=== PATIENT | male | born 1940 | race Caucasian/White ===

== ENCOUNTER 2016-12-20 07:28 | Observation (INO) | payer MEDICARE, BC ==
[~2016-12-20 07:28] MED LIST: ALPRAZOLAM0.5 MG; ANTIVERT25 M1 PO; ASPIRIN BUFFER325 M2 PO; ASPIRIN EC81 MG PO; ASPIRIN325 M3 PO; CELEBREX200 MG PO; CIPRO250 MG PO; GABAPENTIN600 M1 PO; IMDUR30 MG PO; LAXATIVE25 M1 PO; LIPITOR40 M1 PO; LIPITOR80 M1 PO; LOVENOX30 MG/0.3 SQ; LOVENOX40 MG/0.4 SQ; NEURONTIN; NEURONTIN600 M1 PO; NEURONTIN600 MG PO; NITROSTAT0.4 MG/TAB SL; NORVASC2.5 MG PO; NORVASC5 M2 PO; OMEPRAZOLE40 M2 PO; OXYCONTIN10 M1 PO; PLAVIX75 M1 PO; PROMETHAZINE V118 M2 PO; RANEXA500 M1 PO; SIMVASTATIN10 MG PO; SYNTHROID; SYNTHROID175 MC1 PO; TOPROL XL25 M1 PO; TOPROL XL25 MG PO; TRAMADOL HCL50 MG PO; TYLENOL325 M2 PO; ULTRAM50 MG PO; VICODIN ES 7.51 EACH PO; XARELTO20 M1 PO; ZOFRAN4 M2 PO
[2016-12-20 08:19] LABS: BASO % 0.9 % (0-2); BASO ABSOLUTE COUNT 0.1 tho/cmm (0.0-0.2); EOSINOPHIL ABSOLUTE COUNT 0.2 tho/cmm (0.0-0.7); HCT-HEMATOCRIT 38.8 % (36.0-53.5); HGB-HEMOGLOBIN 12.6 gm/dl (13.5-17.0); LYMPH % 29.7 % (20-45); LYMPH ABSOLUTE COUNT 1.7 tho/cmm (0.8-4.5); MCH (MEAN CORPUSCULAR HGB) 28.5 pg (28.0-32.0); MCHC MEAN CORPUSCULAR HGB CONC 32.5 % (32.0-36.0); MCV (MEAN CELL VOLUME) 87.8 fl (82.0-96.0); MEAN PLATELET VOLUME 9.6 cmc (9.4-12.4); MONOCYTE ABSOLUTE COUNT 0.5 tho/cmm (0.0-1.2); NEUTROPHIL ABSOLUTE COUNT 3.3 tho/cmm (1.6-8.0); NEUTROPHIL-AUTOMATED 3.3 tho/cmm (1.6-8.0); NEUTROPHILS % 58.4 % (40-80); PLATELET COUNT 216 tho/cmm (150-450); RED BLOOD COUNT 4.42 mil/cmm (4.40-5.70); RED CELL DISTRIBUTION WIDTH 13.9 % (12.4-16.4); WHITE BLOOD COUNT 5.7 tho/cmm (4.0-10.0)
[2016-12-20 08:25] LABS: INR 1.1 INR (0.9-1.1); PROTHROMBIN TIME 12.3 SECONDS (9.0-13.6)
[2016-12-20 08:32] LABS: ALB/GLOB RATIO 1.1 (0.8-2.0); ALBUMIN 3.7 g/dl (3.5-5.0); ALKALINE PHOSPHATASE 109 U/L (33-138); ALT/SGPT 24 U/L (12-78); ANION GAP 11 mmol/L (0-20); AST/SGOT 25 U/L (10-40); BILIRUBIN,TOTAL 0.6 mg/dl (0.0-1.5); BLOOD UREA NITROGEN 12 mg/dl (6-24); CALCIUM 8.8 mg/dl (8.5-10.5); CARBON DIOXIDE-VENOUS 27 mmol/L (22-32); CHLORIDE 107 mmol/l (96-110); CREATININE 0.86 mg/dl (0.60-1.30); GLUCOSE 102 mg/dL (70-110); POTASSIUM 3.7 mmol/L (3.7-5.1); SODIUM 141 mmol/L (135-145); eGFR VALUE FOR BLACK >90 mL/Min
[2016-12-20 08:36] LABS: C-REACTIVE PROTEIN <0.3 mg/dl (0-0.9)
[2016-12-20] MEDS ORDERED: PROTONIX40 M2 PO (08:40)
[2016-12-20] MEDS ORDERED: NORVASC5 M2 PO (08:40)
[2016-12-20 08:47] LABS: URINE BILIRUBIN NEGATIVE (NEG); URINE BLOOD NEGATIVE (NEG); URINE GLUCOSE (UA) NEGATIVE (NEG); URINE KETONE NEGATIVE (NEG); URINE LEUKOCYTE ESTERASE POSITIVE (NEG); URINE NITRITE NEGATIVE (NEG); URINE PROTEIN NEGATIVE (NEG); URINE SPECIFIC GRAVITY 1.005 (1.003-1.030)
[2016-12-20 08:57] LABS: URINE APPEARANCE CLEAR; URINE COLOR PALE YELLOW
[2016-12-20 09:11] LABS: URINE EPITHELIAL CELLS 0-1 /[HPF] (0-10)
[2017-05-09] MEDS ORDERED: TRAMADOL HCL50 M2 PO (16:02)
== END 2016-12-21 15:03 ==
LOC: EDMED 07:28 → EMR2 10:50 → CAR1 11:59
PROVIDERS: Emergency Medicine; ADMIT Family Medicine
PROC: 0D7E8ZZ Dilation of Large Intestine, Via Natural or Artificial Opening Endoscopic (ICD-10-PCS; principal; 2016-12-21)
PROC: 0DBH8ZZ Excision of Cecum, Via Natural or Artificial Opening Endoscopic (ICD-10-PCS; 2016-12-21)
PROC: 0DBL8ZZ Excision of Transverse Colon, Via Natural or Artificial Opening Endoscopic (ICD-10-PCS; 2016-12-21)
PROC: 0DBK8ZZ Excision of Ascending Colon, Via Natural or Artificial Opening Endoscopic (ICD-10-PCS; 2016-12-21)
DX: K91.89 Other postprocedural complications and disorders of digestive system (principal); D12.0 Benign neoplasm of cecum; D12.2 Benign neoplasm of ascending colon; K63.5 Polyp of colon; D62 Acute posthemorrhagic anemia; I25.10 Atherosclerotic heart disease of native coronary artery without angina pectoris; K21.9 Gastro-esophageal reflux disease without esophagitis; I10 Essential (primary) hypertension; E78.5 Hyperlipidemia, unspecified; E89.0 Postprocedural hypothyroidism; I25.5 Ischemic cardiomyopathy; G62.9 Polyneuropathy, unspecified; N31.9 Neuromuscular dysfunction of bladder, unspecified; F41.8 Other specified anxiety disorders; Z79.02 Long term (current) use of antithrombotics/antiplatelets; Z79.82 Long term (current) use of aspirin; Z79.899 Other long term (current) drug therapy; Z86.73 Personal history of transient ischemic attack (TIA), and cerebral infarction without residual deficits; Z95.5 Presence of coronary angioplasty implant and graft; Z85.840 Personal history of malignant neoplasm of eye; Z90.49 Acquired absence of other specified parts of digestive tract; Z90.89 Acquired absence of other organs; Z96.652 Presence of left artificial knee joint; Z96.642 Presence of left artificial hip joint; Z90.01 Acquired absence of eye; Z97.0 Presence of artificial eye; Z98.49 Cataract extraction status, unspecified eye; Z98.890 Other specified postprocedural states
CPT/HCPCS: C1726; G0378; G0500; J2250; J3010; J7030; Q9967